=== PATIENT | male | born 1995 | race African-American/Black ===

== ENCOUNTER 2016-06-20 12:40 | Emergency (ER) | payer OTHER ==
[~2016-06-20] VITALS: Ht 182.9 cm; Wt 72.6 kg
[2016-06-20] MEDS ORDERED: ULTRAM 50MG TAB50 MG PO (14:02)
[2016-06-20 14:27] VITALS: BP 122/68
== END 2016-06-20 14:30 | disposition home or self-care (01) ==
LOC: ER 12:40
DX: S62.611A Displaced fracture of proximal phalanx of left index finger, initial encounter for closed fracture (principal); S63.611A Unspecified sprain of left index finger, initial encounter; W19.XXXA Unspecified fall, initial encounter; Y93.9 Activity, unspecified; Y92.9 Unspecified place or not applicable; Y99.9 Unspecified external cause status